=== PATIENT | female | born 1945 | race Caucasian/White ===

== ENCOUNTER 2021-11-29 07:42 | Day surgery (SDC) | payer OTHER ==
[~2021-11-29] VITALS: Ht 165.1 cm; Wt 99.9 kg
[~2021-11-29 07:42] MED LIST: HYDCHL25 PO; LISI5 PO; METPRE4DP PO
[2021-11-29] MEDS ORDERED: MICARDIS HCT 81 EACH (08:12)
--- NOTE | 2021-11-29 11:14 | NUR ---
11/29/21 1114 SHADI SIMS PT UP IN CHAIR GETTING DRESSED AT THIS TIME, READY FOR DC AFTER DC INSTRUCTIONS WITH RN
== END 2021-11-29 11:14 | disposition home or self-care (01) ==
LOC: ORSCSDS 07:42
PROVIDERS: Obstetrics & Gynecology
PROC: 0UDB8ZX Extraction of Endometrium, Via Natural or Artificial Opening Endoscopic, Diagnostic (ICD-10-PCS; principal; 2021-11-29 09:00)
DX: N95.0 Postmenopausal bleeding (principal); D25.9 Leiomyoma of uterus, unspecified; N84.0 Polyp of corpus uteri; I10 Essential (primary) hypertension; G47.33 Obstructive sleep apnea (adult) (pediatric); Z87.891 Personal history of nicotine dependence; K21.9 Gastro-esophageal reflux disease without esophagitis; E03.9 Hypothyroidism, unspecified; G47.419 Narcolepsy without cataplexy; E66.9 Obesity, unspecified; Z68.36 Body mass index [BMI] 36.0-36.9, adult; Z79.899 Other long term (current) drug therapy; F41.8 Other specified anxiety disorders; E28.2 Polycystic ovarian syndrome; Z85.43 Personal history of malignant neoplasm of ovary
CPT/HCPCS: 88305; J1100; J2405; J2704; J3010; J7120

== ENCOUNTER 2022-08-31 10:21 | Observation (INO) | payer OTHER ==
[~2022-08-31] VITALS: Ht 165.1 cm; Wt 95.9 kg
[~2022-08-31 10:21] MED LIST changes: +MICARDIS HCT 81 EACH
[2022-08-31] MEDS ORDERED: THYR60 PO (10:25)
[2022-08-31] MEDS ORDERED: ELIQUIS2.5 M1 PO (10:25)
[2022-08-31 11:18] LABS: Source, Urine Fem Cath
[2022-08-31 11:35] LABS: BASOPHILS ABSOLUTE AUTO 0.03 K/mm3 (0.00-0.23); BASOPHILS PERCENT AUTO 1 % (0-2); EOSINOPHILS ABSOLUTE AUTO 0.34 K/mm3 (0.00-0.68); EOSINOPHILS PERCENT AUTO 6 % (0-6); Hemoglobin 11.1 g/dL (11.5-16.0); IMMATURE GRAN ABSOLUTE AUTO 0.01 K/mm3 (0.00-0.10); IMMATURE GRAN PERCENT AUTO 0 % (0-1); LYMPHOCYTES ABSOLUTE AUTO 0.77 K/mm3 (0.84-5.20); LYMPHOCYTES PERCENT AUTO 12 % (21-46); MONOCYTES ABSOLUTE AUTO 0.67 K/mm3 (0.16-1.47); MONOCYTES PERCENT AUTO 11 % (4-13); Mean Corpuscular HGB 29.8 pg (26.0-34.0); Mean Corpuscular HGB Conc 32.6 g/dL (31.5-36.5); Mean Corpuscular Volume 91 fL (80-100); Mean Platelet Volume 9.9 fL (9.1-12.4); NEUTROPHILS ABSOLUTE AUTO 4.39 K/mm3 (1.96-9.15); NEUTROPHILS PERCENT AUTO 71 % (41-73); Platelet Count 353 K/mm3 (150-400); RDW Coefficient Variation 13.1 % (11.7-14.2); RDW Standard Deviation 43.7 fL (35.1-46.3); Red Blood Cell Count 3.73 M/mm3 (3.80-5.20); White Blood Cell Count 6.21 K/mm3 (4.00-11.30)
[2022-08-31 11:39] LABS: Appearance, Urine Clear (Clear); Bilirubin, Urine Neg (Neg); Blood, Urine 2+ (Neg); Color, Urine Yellow (P-Yellow); Glucose Qualitative, Urine Neg (Neg); Ketones, Urine Neg (Neg); Leukocyte Esterase, Urine Neg (Neg); Nitrite, Urine Neg (Neg); Protein, Urine 1+ (Neg); Urobilinogen, Urine NORM (Normal)
[2022-08-31 11:41] LABS: Albumin, Blood 2.8 g/dL (3.4-5.0); Albumin/Globulin Ratio 0.7 (0.8-1.8); Bilirubin, Total 0.4 mg/dL (0.1-1.0); Bun/Creatinine Ratio 22.7 (12.0-20.0); Calcium, Blood 9.1 mg/dL (8.5-10.1); Creatinine, Blood 0.71 mg/dL (0.40-1.00); Globulin, Blood 4.3 g/dL (2.2-4.0); Potassium, Blood 3.8 mmol/L (3.5-5.5); Total Protein, Blood 7.1 g/dL (6.4-8.2)
[2022-08-31 11:45] LABS: International Normalized Ratio 1.08; Prothrombin Time Results 11.3 Sec (9.7-11.5)
[2022-08-31 12:06] LABS: Influenza A, PCR NEGATIVE (NEGATIVE); Influenza B, PCR NEGATIVE (NEGATIVE); Resp Syncytial Virus, PCR NEGATIVE (NEGATIVE); SARS-Cov-2 (COVID-19) PCR, MMC NEGATIVE (NEGATIVE)
[2022-08-31 12:09] LABS: Red Blood Cells, Urine 0-2 /hpf (0-2); White Blood Cells, Urine 0-2 /hpf (0-5)
[2022-08-31 12:10] LABS: Squamous Epithelial Cells Rare /hpf (Few)
[2022-08-31 12:11] LABS: Bacteria Few /hpf; Mucus Light (0-Heavy)
[2022-08-31 15:41] LABS: CPK Creatine Kinase 54 U/L (26-193)
--- NOTE | 2022-08-31 19:10 | NUR ---
PT ALERT NO S/S OF ACUTE DISTRESS, SAFETY MEASURES IN PLACE. REPORT GIVEN TO ON COMING NURSE.
--- NOTE | 2022-09-01 04:53 | NUR ---
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
[2022-09-01 09:23] LABS: BASOPHILS ABSOLUTE AUTO 0.05 K/mm3 (0.00-0.23); BASOPHILS PERCENT AUTO 1 % (0-2); EOSINOPHILS ABSOLUTE AUTO 0.32 K/mm3 (0.00-0.68); EOSINOPHILS PERCENT AUTO 6 % (0-6); Hematocrit 35.2 % (33.0-51.0); Hemoglobin 11.2 g/dL (11.5-16.0); IMMATURE GRAN ABSOLUTE AUTO 0.05 K/mm3 (0.00-0.10); IMMATURE GRAN PERCENT AUTO 1 % (0-1); LYMPHOCYTES ABSOLUTE AUTO 0.87 K/mm3 (0.84-5.20); LYMPHOCYTES PERCENT AUTO 15 % (21-46); MONOCYTES ABSOLUTE AUTO 0.46 K/mm3 (0.16-1.47); MONOCYTES PERCENT AUTO 8 % (4-13); Mean Corpuscular HGB 29.2 pg (26.0-34.0); Mean Corpuscular HGB Conc 31.8 g/dL (31.5-36.5); Mean Corpuscular Volume 92 fL (80-100); Mean Platelet Volume 9.4 fL (9.1-12.4); NEUTROPHILS ABSOLUTE AUTO 4.07 K/mm3 (1.96-9.15); NEUTROPHILS PERCENT AUTO 70 % (41-73); Platelet Count 356 K/mm3 (150-400); RDW Coefficient Variation 13.2 % (11.7-14.2); RDW Standard Deviation 44.2 fL (35.1-46.3); Red Blood Cell Count 3.83 M/mm3 (3.80-5.20); White Blood Cell Count 5.82 K/mm3 (4.00-11.30)
[2022-09-01 09:40] LABS: Bun/Creatinine Ratio 22.8 (12.0-20.0); Calcium, Blood 8.7 mg/dL (8.5-10.1); Creatinine, Blood 0.61 mg/dL (0.40-1.00); Potassium, Blood 4.2 mmol/L (3.5-5.5)
--- NOTE | 2022-09-01 12:45 | NUR ---
IV CATH IS REMOVED. IV SITE NO SWELLING AND CATH INTACT.
[2022-09-01] MEDS ORDERED: LEVO750 PO (12:53)
== END 2022-09-01 13:22 | disposition home or self-care (01) ==
LOC: ER 10:21 → MEDS 10:22
PROVIDERS: Physician Assistant; ADMIT Internal Medicine
DX: J90 Pleural effusion, not elsewhere classified (principal); G47.33 Obstructive sleep apnea (adult) (pediatric); I10 Essential (primary) hypertension; E03.9 Hypothyroidism, unspecified; F43.10 Post-traumatic stress disorder, unspecified; F32.A Depression, unspecified; F41.9 Anxiety disorder, unspecified; E66.9 Obesity, unspecified; Z88.0 Allergy status to penicillin; Z79.899 Other long term (current) drug therapy; Z79.01 Long term (current) use of anticoagulants; Z20.822 Contact with and (suspected) exposure to COVID-19
CPT/HCPCS: 0241U; 36415; 71046; 71260; 80048; 80053; 81001; 82550; 83605; 83880; 84145; 84484; 85025; 85610; 85730; 87086; 93005; 93010; 94660; 96361; 96365-59; 96366; 96375; 96375-59; 96376; 99285-25; A9270; G0378; J0360; J1885; J1956; J2270; J2405; J7030; Q9967

== ENCOUNTER → 2022-10-29 | Outpatient (CLI) | payer OTHER ==
[~2022-10-29] MED LIST changes: +ELIQUIS2.5 M1 PO; +LEVO750 PO; +THYR60 PO
[2022-10-29 17:02] LABS: Source, Urine Voided
[2022-10-29 17:35] LABS: Appearance, Urine Clear (Clear); Bilirubin, Urine Neg (Neg); Blood, Urine Neg (Neg); Color, Urine Yellow (P-Yellow); Glucose Qualitative, Urine Neg (Neg); Ketones, Urine 2+ (Neg); Leukocyte Esterase, Urine 1+ (Neg); Nitrite, Urine Neg (Neg); Protein, Urine 2+ (Neg); Urobilinogen, Urine NORM (Normal)
[2022-10-29 17:45] LABS: Red Blood Cells, Urine 0-2 /hpf (0-2)
[2022-10-29 17:46] LABS: Bacteria Mod /hpf; Squamous Epithelial Cells Rare /hpf (Few); Transitional Epithelial Cells Few /hpf (0-Rare)
== END | disposition home or self-care (01) ==
LOC: LAB SHORT 15:03 → LAB 15:03
PROVIDERS: Internal Medicine Hematology & Oncology
DX: R30.0 Dysuria (principal)
CPT/HCPCS: 81001; 87086